=== PATIENT | male | born 1985 | race American Indian/Alaskan Native ===

== ENCOUNTER 2021-07-16 01:08 | Emergency (ER) | payer SELFPAY ==
[2021-07-16] MEDS ORDERED: MORPHINE 4 MG/1 ML INJ IV ONE (01:16)
[2021-07-16] MEDS ORDERED: SODIUM CHLORIDE 0.9% 1000 ML 1,000 ML IV ONE (01:16)
[2021-07-16] MEDS ORDERED: ONDANSETRON 4 MG/2 ML INJ IV ONE (01:16)
[2021-07-16] MEDS ORDERED: TETANUS,DIPH,PERTUSS(ACELL) VACCINE 0.5 ML SYRINGE IM ONE (01:19)
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
[2021-07-16] MEDS ORDERED: KETOROLAC 30 MG/1 ML INJ IV ONE (01:26)
[2021-07-16 01:54] LABS: Basophils # (Auto) 0.1 K/mm3 (0.0-0.1); Basophils % (Auto) 0.8 % (0.0-1.8); Eosinophils # (Auto) 0.2 K/mm3 (0.0-0.4); Hematocrit 45.2 % (35.5-45.6); Hemoglobin 15.6 gm/dl (11.8-15.2); Lymphocytes # (Auto) 3.4 K/mm3 (1.2-5.4); Lymphocytes % (Auto) 49.7 % (13.4-35.0); Mean Corpuscular HGB Conc 35 % (32-34); Mean Corpuscular Volume 91 fl (84-94); Monocytes # (Auto) 0.5 K/mm3 (0.0-0.8); Monocytes % (Auto) 7.4 % (0.0-7.3); Platelet Count 234 K/mm3 (140-440); Red Blood Count 4.96 M/mm3 (3.65-5.03); Red Cell Distribution Width 14.2 % (13.2-15.2)
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
[2021-07-16 02:08] LABS: Alanine Aminotransferase 38 units/L (7-56); Albumin 4.9 g/dL (3.9-5); BUN/Creatinine Ratio 9; Blood Urea Nitrogen 9 mg/dL (9-20); Calcium 9.7 mg/dL (8.4-10.2); Hemolysis Index 11; INR 1.01 (0.87-1.13)
[2021-07-16 02:09] LABS: Partial Thromboplastin Time 28.1 Sec. (24.2-36.6)
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
[2021-07-16] MEDS ORDERED: BACITRACIN/POLYMYXIN B OINT 28.35 GM TP ONE (04:31)
[2021-07-16] MEDS ORDERED: SODIUM CHLORIDE 0.9% IRR 500 ML BOTTLE IR ONE (05:04)
[2021-07-16 06:32] VITALS: BP 117/75
== END 2021-07-16 06:05 | disposition home or self-care (01) ==
LOC: ED 01:08
DX: S61.412A Laceration without foreign body of left hand, initial encounter (principal); T14.8XXA Other injury of unspecified body region, initial encounter; Z79.899 Other long term (current) drug therapy; V89.2XXA Person injured in unspecified motor-vehicle accident, traffic, initial encounter; Y93.89 Activity, other specified; Y92.488 Other paved roadways as the place of occurrence of the external cause; Y99.8 Other external cause status
CPT/HCPCS: 12001; 36415; 70450; 70486; 71045; 71260; 72125; 72170; 73030; 73070; 73630; 74177; 80053; 82550; 85025; 85610; 85730; 90715; 96361; 96374; 99284; J1885; J2270; J2405; J7030; Q9967; 80320; 96360; G0480